=== PATIENT | male | born 1965 | race Two or more races ===

== ENCOUNTER 2019-05-21 19:32 | Emergency (ER) | payer OTHER ==
[~2019-05-21] VITALS: Ht 167.6 cm; Wt 90.7 kg
[2019-05-21 19:32] VITALS: BP 132/84
--- NOTE | 2019-05-21 19:32 | NUR ---
ED Nurse Note: pt walked in to ED for C/O flu like S/Sx x 3 days. pt reports having cough, sore throat and fever. Temp at triage is 100.6 orally. pt took advil at 1830
--- NOTE | 2019-05-21 19:39 | NUR ---
ED Nurse Note: swab collected
--- NOTE | 2019-05-21 20:03 | NUR ---
ED Nurse Note: CXR taken
--- NOTE | 2019-05-21 21:16 | Diagnostic Imaging Report ---
Indication: Dyspnea Comparison: None A single view chest radiograph was obtained. Findings: Cardiomediastinal appearance is within normal limits for age. The lungs are clear. Pulmonary vascularity is appropriate. The diaphragmatic contour is smooth and costophrenic angles are sharp. No pleural effusions are identified. The bones are unremarkable. Impression: No acute findings
--- NOTE | 2019-05-21 21:17 | Emergency Room Report ---
History of Present Illness General Chief Complaint: Flu Like Symptoms Source: Patient (Bhanu Butler) Present Illness HPI 53-year-old male with no known significant past medical history here with daughter, Macedonian speaker, complaining 2 days of generalized body ache, cough and congestion reports that he came back from the [facility] about a month ago. Has a temperature of 100 F upon arrival. Reports that he only vomits when he is coughing. Denies any abdominal pain or diarrhea to me. Denies any sore throat. Denies chest pain chest pain radiation. Has not taken medication for symptom relief. Denies any smoking history. However upon examination of , patient mentions that he also has diarrhea and nausea and vomiting and has been actively vomiting. This was not mentioned to me nor the triage nurse COVID-19 risk:Contact w/high r: No COVID-19 risk:Travel to affect: No Has patient experienced underwood: Yes Coronavirus symptoms experienc: Fever (T>100.4F or >38C), Cough, Flu-Like Symptoms (Bhanu Butler) Allergies: Coded Allergies: No Known Allergies (Unverified , 05/21/19) Patient History Past Medical History: see triage record Past Surgical History: none Pertinent Family History: none Immunizations: UTD Reviewed Nursing Documentation: PMH: Agreed; PSxH: Agreed (Bhanu Butler) Nursing Documentation-PMH Past Medical History: No Stated History (Bhanu Butler) Review of Systems All Other Systems: negative except mentioned in HPI (Bhanu Butler) Physical Exam Vital Signs Date Time Temp Pulse Resp B/P (MAP) Pulse Ox O2 Delivery O2 Flow Rate FiO2 05/21/19 19:26 100.6 89 18 139/81 (100) 97 Room Air Sp02 EP Interpretation: reviewed, abnormal - Fever of 100 F General Appearance: no apparent distress, alert, GCS 15, non-toxic Head: normocephalic, atraumatic Eyes: bilateral eye normal inspection, bilateral eye PERRL ENT: hearing grossly normal, normal pharynx, no angioedema, normal voice Neck: full range of motion, supple/symm/no masses Respiratory: chest non-tender, lungs clear, normal breath sounds, no rhonchi, no retraction, no wheezing, speaking full sentences Cardiovascular #1: regular rate, rhythm, no edema, no murmur Gastrointestinal: soft, no mass Rectal: deferred Genitourinary: no CVA tenderness Musculoskeletal: back normal, no calf tenderness Neurologic: alert, motor strength/tone normal, oriented x3, sensory intact, responsive, speech normal Psychiatric: judgement/insight normal, memory normal, mood/affect normal, no suicidal/homicidal ideation Skin: no rash, normal color, warm/dry Lymphatic: no adenopathy (Bhanu Butler) Medical Decision Making PA Attestation All my diagnosis and treatment plans were reviewed ad discussed with my supervising physician Dr. Fagan All my diagnosis and treatment plans were reviewed ad discussed with my supervising physician Dr. Finn (Bhanu Butler) Diagnostic Impression: Primary Impression: Diarrhea Additional Impressions: Vomiting Abdominal pain ER Course 53-year-old male with no known significant past medical history here with daughter, Macedonian speaker, complaining 2 days of generalized body ache, cough and congestion reports that he came back from the [facility] about a month ago. Has a temperature of 100 F upon arrival. Reports that he only vomits when he is coughing. Denies any abdominal pain or diarrhea to me. Denies any sore throat. Denies chest pain chest pain radiation. Has not taken medication for symptom relief. Denies any smoking history. However upon examination of , patient mentions that he also has diarrhea and nausea and vomiting and has been actively vomiting. This was not mentioned to me nor the triage nurse Ddx considered but are not limited to: Coronavirus, strep pharyngitis, URI, tonsillitis, peritonsillar abscess, influneza ,diarrhea Vital signs: are WNL, pt. is afebrile H&PE are most consistent with: URI, diarrhea ORDERS: Rapid influenza test, chest x-ray ED INTERVENTIONS: None required at this time. I signed out the patient to Dr. Finn (Bhanu Butler) ER Course Please put the initial note for the initial presentation and history On reevaluation patient reports that he flew back from the [facility] on April 19 Patient's family member is here who also traveled with the patient He was doing well However on Sunday started having increased nausea vomiting And earlier today had episode of diarrhea There was initially questionable report of cough however patient denies any cough at this time Complains of increased nausea body ache and did have a low-grade temperature Denies any rash With these findings the patient did have further IV hydration and nausea medication provided Blood work all at baseline levels patient's x-ray also appears appropriate and normal After reevaluation patient has improved significantly and will have initial conservative outpatient trial Labs Test 05/21/19 21:30 05/21/19 21:37 Urine Color Yellow Urine Appearance Clear Urine pH 5 (4.5-8.0) Urine Specific [place] 1.025 (1.005-1.035) Urine Protein 2+ (NEGATIVE) Urine Glucose (UA) Negative (NEGATIVE) Urine Ketones 1+ (NEGATIVE) Urine Blood 1+ (NEGATIVE) Urine Nitrite Negative (NEGATIVE) Urine Bilirubin Negative (NEGATIVE) Urine Urobilinogen 4 MG/DL (0.0-1.0) Urine Leukocyte Esterase 1+ (NEGATIVE) Urine RBC 5-10 /HPF (0 - 0) Urine WBC 2-4 /HPF (0 - 0) Urine Squamous Epithelial Cells None /LPF (NONE/OCC) Urine Bacteria Few /HPF (NONE) White Blood Count 11.3 K/UL (4.8-10.8) Red Blood Count 5.25 M/UL (4.70-6.10) Hemoglobin 15.6 G/DL (14.2-18.0) Hematocrit 46.2 % (42.0-52.0) Mean Corpuscular Volume 88 FL (80-99) Mean Corpuscular Hemoglobin 29.8 PG (27.0-31.0) Mean Corpuscular Hemoglobin Concent 33.8 G/DL (32.0-36.0) Red Cell Distribution Width 12.2 % (11.6-14.8) Platelet Count 221 K/UL (150-450) Mean Platelet Volume 7.5 FL (6.5-10.1) Neutrophils (%) (Auto) 80.1 % (45.0-75.0) Lymphocytes (%) (Auto) 10.2 % (20.0-45.0) Monocytes (%) (Auto) 8.3 % (1.0-10.0) Eosinophils (%) (Auto) 0.0 % (0.0-3.0) Basophils (%) (Auto) 1.4 % (0.0-2.0) Sodium Level 137 MMOL/L (136-145) Potassium Level 3.7 MMOL/L (3.5-5.1) Chloride Level 101 MMOL/L (98-107) Carbon Dioxide Level 25 MMOL/L (21-32) Anion Gap 11 mmol/L (5-15) Blood Urea Nitrogen 18 mg/dL (7-18) Creatinine 1.0 MG/DL (0.55-1.30) Estimat Glomerular Filtration Rate > 60 mL/min (>60) Glucose Level 125 MG/DL (74-106) Lactic Acid Level 0.70 mmol/L (0.4-2.0) Calcium Level 9.0 MG/DL (8.5-10.1) Total Bilirubin 0.5 MG/DL (0.2-1.0) Aspartate Amino Transf (AST/SGOT) 22 U/L (15-37) Alanine Aminotransferase (ALT/SGPT) 41 U/L (12-78) Alkaline Phosphatase 68 U/L (46-116) Total Protein 8.0 G/DL (6.4-8.2) Albumin 3.8 G/DL (3.4-5.0) Globulin 4.2 g/dL Albumin/Globulin Ratio 0.9 (1.0-2.7) (Yifan Finn DO) Chest X-Ray Diagnostic Results Chest X-Ray Diagnostic Results : Chest X-Ray Ordered: Yes # of Views/Limited/Complete: 1 View Indication: Other EP Interpretation: Yes PA Xray: Interpretation reviewed, by supervising MD, and agrees with findings. Interpretation: no consolidation, no effusion, no pneumothorax Impression: No acute disease Electronically Signed by: Bhanu Ramirez PA-C (Bhanu Butler) Chest X-Ray Diagnostic Results : Chest X-Ray Ordered: Yes # of Views/Limited/Complete: 1 View Indication: Shortness of Breath EP Interpretation: Yes Interpretation: no consolidation, no effusion, no pneumothorax Impression: No acute disease Electronically Signed by: Yifan Finn DO (Yifan Finn DO) Last Vital Signs Date Time Temp Pulse Resp B/P (MAP) Pulse Ox O2 Delivery O2 Flow Rate FiO2 05/21/19 19:32 84 19 Room Air 05/21/19 19:32 100.6 132/84 97 (Bhanu Butler) Status: improved (Yifan Finn DO) Disposition: HOME, SELF-CARE Condition: Improved Scripts Ondansetron* (ZOFRAN*) 4 Mg Tablet 4 MG ORAL Q8HR PRN for Nausea & Vomiting, #14 TAB Prov: Yifan Finn DO 05/21/19 Acetaminophen* (TYLENOL EXTRA STRENGTH*) 500 Mg Tablet 500 MG ORAL Q8H PRN for Prn Headache/Temp > 101, #30 TAB 0 Refills Prov: Bhanu Butler 05/21/19 Referrals: NOT CHOSEN IPA/,REFERRING (PCP) Additional Instructions: Patient is provided with the discharge instructions notified to follow up with primary doctor in the next 2-3 days otherwise return to the er with any worsening symptoms. Please note that this report is being documented using DRAGON technology. This can lead to erroneous entry secondary to incorrect interpretation by the dictating instrument. Bhanu Butler May 21, 2019 21:17 Yifan Finn DO May 22, 2019 00:11
[2019-05-21] MEDS ORDERED: TAMIFLU75 MG ORAL (21:18)
[2019-05-21] MEDS ORDERED: TYLENOL EXTRA500 MG ORAL (21:18)
[2019-05-21] MEDS ORDERED: GUAIFENESI100 MG/5 M ORAL (21:18)
[2019-05-21 21:25] VITALS: BP 139/74
--- NOTE | 2019-05-21 21:25 | NUR ---
ED Nurse Note: Pt also reports abdominal pain, nausea and vomiting x2 since this morning. Denies diarrhea. Temp 98.4F.
--- NOTE | 2019-05-21 21:26 | NUR ---
ED Nurse Note: IV line established. Blood and urine specimen collected and sent to lab.
[2019-05-21] MEDS ORDERED: Ketorolac 30mg Inj IV ONE (21:30)
[2019-05-21 21:42] LABS: APPEARANCE,URINE CLEAR; BILIRUBIN, URINE NEGATIVE (NEGATIVE); GLUCOSE, URINE (UA) NEGATIVE (NEGATIVE); KETONES,URINE 1+ (NEGATIVE); LEUKOCYTE ESTERASE ,URINE 1+ (NEGATIVE); NITRITE,URINE NEGATIVE (NEGATIVE); PH,URINE 5 (4.5-8.0); PROTEIN,URINE 2+ (NEGATIVE); UROBILINOGEN,URINE 4 MG/DL (0.0-1.0)
--- NOTE | 2019-05-21 21:46 | NUR ---
ED Nurse Note: Pt was taken for CT via wc, accompaneid by a tech.
--- NOTE | 2019-05-21 21:53 | NUR ---
ED Nurse Note: Pt came back from CT, not in any distress.
[2019-05-21 21:54] LABS: ANION GAP 11 mmol/L (5-15); BLOOD UREA NITROGEN 18 mg/dL (7-18); CARBON DIOXIDE 25 MMOL/L (21-32); CHLORIDE 101 MMOL/L (98-107); POTASSIUM 3.7 MMOL/L (3.5-5.1); SODIUM 137 MMOL/L (136-145)
[2019-05-21 21:58] LABS: COLOR,URINE YELLOW
[2019-05-21 21:59] LABS: ALANINE AMINOTRANSFERASE 41 U/L (12-78); ALBUMIN 3.8 G/DL (3.4-5.0); ALBUMIN/GLOBULIN RATIO 0.9 (1.0-2.7); ALKALINE PHOSPHATASE 68 U/L (46-116); ASPARTATE AMINO TRANSFERASE 22 U/L (15-37); BILIRUBIN,TOTAL 0.5 MG/DL (0.2-1.0)
[2019-05-21 22:07] LABS: BASOPHILS % (AUTO) 1.4 % (0.0-2.0); HEMATOCRIT 46.2 % (42.0-52.0); HEMOGLOBIN 15.6 G/DL (14.2-18.0); LYMPHOCYTES % (AUTO) 10.2 % (20.0-45.0); MEAN CORPUSCULAR VOLUME 88 FL (80-99); MONOCYTES % (AUTO) 8.3 % (1.0-10.0); NEUTROPHILS % (AUTO) 80.1 % (45.0-75.0); PLATELET COUNT 221 K/UL (150-450); RED BLOOD COUNT 5.25 M/UL (4.70-6.10); RED CELL DISTRIBUTION WIDTH 12.2 % (11.6-14.8); WHITE BLOOD COUNT 11.3 K/UL (4.8-10.8)
--- NOTE | 2019-05-21 22:22 | Diagnostic Imaging Report ---
INDICATION: Abdominal pain TECHNIQUE: Continuous helical transaxial imaging of the abdomen and pelvis was obtained from the lung bases to the pubic symphysis. No intravenous contrast was administered. Coronal 2-D reformats were also obtained. Automatic Exposure Control was utilized. Total Dose length Product (DLP): 631.[address] Dose Index Volume (CTDIvol): 10.4 mGy Comparison: none FINDINGS: Lungs: There is mild bronchiectasis at the lung bases. .. Liver: The liver is hypodense consistent with fatty infiltration Gallbladder/biliary system: No gallstones are identified. There is no evidence of intrahepatic or extrahepatic biliary ductal dilatation. Spleen: Unremarkable Pancreas: Unremarkable Kidneys/Bladder: No definite stone or hydronephrosis are identified. The urinary bladder is unremarkable.. Adrenal glands: Unremarkable Bowel: There is no evidence of bowel obstruction. The appendix is normal. Aorta/IVC: Unremarkable Peritoneum: There is no free fluid. Bones: Vertebral endplate osteophytes noted within the thoracic or lumbar spine. IMPRESSION: Fatty liver. Mild bronchiectasis at the lung bases. [facility] has communicated the preliminary results to the Emergency Department. Their findings are largely concordant with this report. Note: Evaluation of solid organs is limited on non contrast imaging. The CT scanner at [facility] is accredited by the [employer] and the scans are performed using dose optimization techniques as appropriate to a performed exam including Automatic Exposure control.
[2019-05-21] MEDS ORDERED: ZOFRAN4 M3 ORAL (22:58)
[2019-05-21 23:04] VITALS: BP 130/82
--- NOTE | 2019-05-21 23:04 | NUR ---
ED Nurse Note: Pt cleared by ERMD for discharge. DC instructions/prescription was given and explained to pt and verbalized understanding of teachings. All medical deviecs such as ID band and IV line removed. Pt is AAO x4, ambulatory and left with all personal belongings. Accompanied by his daughter.
== END 2019-05-21 23:05 | disposition home or self-care (01) ==
LOC: EDBD 19:32 → EMR 19:50 → CANBEDREQ 23:01 → EMR 23:05
DX: R05 Cough (principal); R19.7 Diarrhea, unspecified; R11.10 Vomiting, unspecified; R10.9 Unspecified abdominal pain; R50.9 Fever, unspecified
CPT/HCPCS: 36415; 71045; 74176; 80053; 81003; 83605; 85025; 86710; 96361; 96374; 96375; 99284; J1885; J2405; J7030